=== PATIENT | female | born 1995 | race Caucasian/White ===

== ENCOUNTER 2017-07-06 20:51 | Emergency (ER) | payer BC ==
[2017-07-06 21:02] VITALS: BP 118/69
[2017-07-06] MEDS ORDERED: IBUPROFEN 600 MG TAB PO ONE (21:40)
--- NOTE | 2017-07-06 21:40 | EDPHY ---
General - History Smoking Status: Never smoked Time Seen by Provider: 07/06/17 21:35 Narrative: CHIEF COMPLAINT: Right wrist pain HISTORY OF PRESENT ILLNESS: Patient complains of right wrist and forearm pain. This started approximately 10 days ago. This was after heavy adding of CHI packing. The pain is located on the lateral aspect of the right forearm, mid to distally. It was minimal over the 1st few days, over the past 2 days it has become moderate to severe. No numbness or tingling. No weakness. No blunt trauma or injury. She has a secondary complaint of a set of abrasions to the left lateral ankle. She does not know when her last tetanus was and would like to be updated. No other associated complaints or modifying factors. DOMINANT EXTREMITY: Right-hand dominant ESTABLISHED ORTHOPEDIST: None yet. She has called and scheduled appointment on Monday with Dr. Joshua Woodson REVIEW OF SYSTEMS: Ten systems reviewed and are negative unless otherwise noted in the HPI PAST MEDICAL HISTORY: Uncomplicated PAST SURGICAL HISTORY: No surgical history SOCIAL HISTORY: [employer] student. Originally from [place] FAMILY HISTORY: Noncontributory EXAMINATION General Appearance: Alert, no distress Cardiovascular: Symmetric radial pulses 2+. Brisk cap refill on the fingers of the right hand Neurological: A&O, sensory symmetric, interossei strength symmetric. Beauty Therapist strength symmetric Skin: Warm and dry, no rash. No petechiae purpura. No puncture, laceration or ecchymosis. There is superficial abrasion to the left lateral ankle below the malleolus. No cellulitis, abscess or crepitus Extremities: Moderate tenderness of the right lateral forearm from mid to distal portion. No snuffbox tenderness. No pain of the phalanges or metacarpals. Pain is worse with ulnar deviation of the wrist. Equivocal Giselle test. No palpable masses the forearm. Range of motion of the elbow was unremarkable. Psychiatric: Mood and affect normal DIFFERENTIAL DIAGNOSES: Including but not limited to sprain, strain, tendinitis, tenosynovitis MDM: 9:40 p.m. Acute right wrist tendinitis versus declare veins tenosynovitis. There is no bony tenderness. No crepitus. She is fully neuro intact. I do not feel that she warrants an x-ray, nor does she want [address] will place her in a thumb spica splint to protect the wrist and provide some support for her. She is weight-bearing as tolerated. I have also ordered a Tdap booster for her abrasion as she does not know when her last tetanus was. We discussed ice, elevation and anti-inflammatories. Discharged home stable condition with orthopedic follow-up that she has secured on Monday. ED precautions discussed SUPERVISION: This patient was independently evaluated without direct involvement of or examination by the attending physician. ED Precautions: Worsening pain. Erythema, edema, cyanosis, pallor, paresthesia or anesthesia. (Yuri Priest) The patient was evaluated and managed by the physician library technical assistant. I have reviewed this chart and I agree with the findings and plan of care as documented , as indicated by my signature. I am the secondary supervising physician. ( Renata Villasenor) - Objective Vital Signs: Initial Vital Signs Temperature (C) 36.8 C 07/06/17 20:58 Heart Rate 64 07/06/17 20:58 Respiratory Rate 16 07/06/17 20:58 Blood Pressure 118/69 07/06/17 20:58 O2 Sat (%) 98 07/06/17 20:58 O2 Delivery Mode Room Air Allergies/Adverse Reactions: No Known Allergies Allergy (Unverified 07/06/17 20:57) Home Medications: Medication Instructions Recorded NK [No Known Home Meds] 07/06/17 Medications Given: Discontinued Medications Ibuprofen (Motrin) 600 mg PO EDNOW ONE Stop: 07/06/17 21:41 Last Admin: 07/06/17 21:45 Dose: 600 mg Departure - Departure Disposition: Home, Routine, Self-Care Clinical Impression: Right wrist tendinitis Condition: Good Instructions: De Quervain Disease (ED), Tendinitis (ED) Additional Instructions: 1. Ice and elevate often 2. Ibuprofen 600 mg every 6-8 hours as needed for pain 3. Keep the appointment that she made on Monday with Dr. Woodson Referrals: NONE *PRIMARY CARE P,. [Primary Care Provider] - As per Instructions Joshua Woodson MD [Medical Doctor] - As per Instructions
[2017-07-06] MEDS ORDERED: TDAP ADULT 0.5 ML INJ (BOOSTRIX) IM ONE (21:43)
== END 2017-07-06 21:55 | disposition home or self-care (01) ==
DX: M77.8 Other enthesopathies, not elsewhere classified (principal)

== ENCOUNTER 2018-01-15 13:25 | Emergency (ER) | payer BC ==
[2018-01-15] MEDS ORDERED: NS 1,000 ML IV ONE (14:33)
--- NOTE | 2018-01-15 14:33 | EDPHY ---
H & P Stated Complaint: 1 week upper abd pain and dizzyness sent to r/o ulcer Time Seen by Provider: 01/15/18 14:33 HPI/ROS: CHIEF COMPLAINT: Intermittent abdominal pain HISTORY OF PRESENT ILLNESS: The patient presents to the ED with a one-week history of intermittent abdominal pain. The patient has been taking NSAIDs at night. She did have some dark stools earlier in the week but had taken Pepto- Bismol. The patient continues to complain of some ongoing epigastric discomfort. She denies any lower abdominal pain. She denies any prior history of gastrointestinal illness or disease. The patient reports that her pain is mild in nature. It is worsened with palpation and eating. REVIEW OF SYSTEMS: A comprehensive 10 point review of systems is otherwise negative aside from elements mentioned in the history of present illness. Source: Patient Exam Limitations: No limitations - Personal History LMP (Females 10-55): IUD In Place Current Tetanus Diphtheria and Acellular Pertussis (TDAP): Yes - Medical/Surgical History Hx Asthma: No Hx Chronic Respiratory Disease: No Hx Diabetes: No Hx Cardiac Disease: No Hx Renal Disease: No Hx Cirrhosis: No Hx Alcoholism: No Hx HIV/AIDS: No Hx Splenectomy or Spleen Trauma: No Other PMH: denies - Social History Smoking Status: Never smoked - Physical Exam Exam: General Appearance: Alert, no distress Eyes: Pupils equal and round no pallor or injection ENT, Mouth: Mucous membranes moist Respiratory: There are no retractions, lungs are clear to auscultation Cardiovascular: Regular rate and rhythm Gastrointestinal: Minimal epigastric tenderness to palpation, no peritoneal signs, normal bowel sounds Neurological: 5/5 strength all 4 extremities Skin: Warm and dry, no rashes Musculoskeletal: Neck is supple nontender Extremities: symmetrical, full range of motion Psychiatric: Patient is oriented X 3, there is no agitation Constitutional: Initial Vital Signs Temperature (C) 36.9 C 01/15/18 13:39 Heart Rate 92 01/15/18 13:39 Respiratory Rate 16 01/15/18 13:39 Blood Pressure 112/81 H 01/15/18 13:39 O2 Sat (%) 97 01/15/18 13:39 O2 Delivery Mode Room Air Allergies/Adverse Reactions: No Known Allergies Allergy (Unverified 07/06/17 20:57) Home Medications: Medication Instructions Recorded Pantoprazole Sodium [Protonix 40mg 40 mg PO BID #60 tab 01/15/18 (*)] Medical Decision Making - Diagnostics EKG Interpretation: EKG: Complete interpretation has been separately recorded in the [facility] archive. Summary impression: Sinus rhythm, rate 71 ED Course/Re-evaluation: The patient presents the ED for evaluation of episodic epigastric pain over the past week. The patient has been using NSAIDs at night. She did have dark stool earlier in the week. The patient denies any hematemesis. She denies prior history of peptic ulcer disease. The patient was noted to be hemodynamically stable. Workup in the emergency department includes a normal CBC, serum chemistries, liver function test and lipase. The patient's test is negative. Patient has no evidence of any anemia. The patient certainly could be experiencing some NSAID induced gastritis. The patient will be started on a proton pump inhibitor. She is advised to return to the emergency department for bright red blood per rectum, increasing melena, lightheadedness or other concerns. The patient is advised to follow up with her primary care provider for a recheck within the week. Differential Diagnosis: Differential diagnosis considered includes peptic ulcer disease, gastritis, hepatitis, pancreatitis, ruptured ovarian cyst - Data Points Laboratory Results: Laboratory Results 01/15/18 14:45 01/15/18 14:45 01/15/18 01/15/18 01/15/18 14:45 14:45 14:45 WBC 9.10 10^3/uL 10^3/uL (3.80-9.50) RBC 4.84 10^6/uL 10^6/uL (4.18-5.33) Hgb 14.6 g/dL g/dL (12.6-16.3) Hct 43.3 % % (38.0-47.0) MCV 89.5 fL fL (81.5-99.8) MCH 30.2 pg pg (27.9-34.1) MCHC 33.7 g/dL g/dL (32.4-36.7) RDW 12.5 % % (11.5-15.2) Plt Count 285 10^3/uL 10^3/uL (150-400) MPV 10.6 fL fL (8.7-11.7) Neut % (Auto) 74.4 % H % (39.3-74.2) Lymph % (Auto) 19.9 % % (15.0-45.0) [place] % (Auto) 4.3 % L % (4.5-13.0) Eos % (Auto) 0.7 % % (0.6-7.6) Baso % (Auto) 0.5 % % (0.3-1.7) Nucleat RBC Rel Count 0.0 % % (0.0-0.2) Absolute Neuts (auto) 6.77 10^3/uL H 10^3/uL (1.70-6.50) Absolute Lymphs (auto) 1.81 10^3/uL 10^3/uL (1.00-3.00) Absolute Monos (auto) 0.39 10^3/uL 10^3/uL (0.30-0.80) Absolute Eos (auto) 0.06 10^3/uL 10^3/uL (0.03-0.40) Absolute Basos (auto) 0.05 10^3/uL 10^3/uL (0.02-0.10) Absolute Nucleated RBC 0.00 10^3/uL 10^3/uL (0-0.01) Immature Gran % 0.2 % % (0.0-1.1) Immature Gran # 0.02 10^3/uL 10^3/uL (0.00-0.10) Sodium 142 mEq/L mEq/L (135-145) Potassium 4.1 mEq/L mEq/L (3.5-5.2) Chloride 107 mEq/L mEq/L (97-110) Carbon Dioxide 25 mEq/l mEq/l (22-31) Anion Gap 10 mEq/L mEq/L (6-14) BUN 16 mg/dL mg/dL (7-23) Creatinine 1.1 mg/dL H mg/dL (0.6-1.0) Estimated GFR > 60 Glucose 96 mg/dL mg/dL (70-100) Calcium 9.9 mg/dL mg/dL (8.5-10.4) Total Bilirubin Conjugated Bilirubin Unconjugated Bilirubin AST ALT Alkaline Phosphatase Total Protein Albumin Lipase Beta HCG, Qual NEGATIVE 01/15/18 14:25 WBC RBC Hgb Hct MCV MCH MCHC RDW Plt Count MPV Neut % (Auto) Lymph % (Auto) [place] % (Auto) Eos % (Auto) Baso % (Auto) Nucleat RBC Rel Count Absolute Neuts (auto) Absolute Lymphs (auto) Absolute Monos (auto) Absolute Eos (auto) Absolute Basos (auto) Absolute Nucleated RBC Immature Gran % Immature Gran # Sodium Potassium Chloride Carbon Dioxide Anion Gap BUN Creatinine Estimated GFR Glucose Calcium Total Bilirubin 0.4 mg/dL mg/dL (0.1-1.4) Conjugated Bilirubin 0.4 mg/dL mg/dL (0.0-0.5) Unconjugated Bilirubin 0.0 mg/dL mg/dL (0.0-1.1) AST 30 IU/L IU/L (14-46) ALT 17 IU/L IU/L (9-52) Alkaline Phosphatase 75 IU/L IU/L (38-126) Total Protein 7.1 g/dL g/dL (6.3-8.2) Albumin 4.5 g/dL g/dL (3.5-5.0) Lipase 141 IU/L IU/L (23-300) Beta HCG, Qual Medications Given: Discontinued Medications Sodium Chloride (Ns) 1,000 mls @ 0 mls/hr IV EDNOW ONE; Wide Open PRN Reason: Protocol Stop: 01/15/18 14:34 Last Admin: 01/15/18 14:53 Dose: 1,000 mls Departure - Departure Disposition: Home, Routine, Self-Care Clinical Impression: Abdominal pain Qualifiers: Abdominal location: epigastric Qualified Code(s): R10.13 - Epigastric pain Condition: Good Instructions: Acute Abdominal Pain (ED) Additional Instructions: 1. The blood testing done in the emergency department today demonstrates no evidence of anemia or active bleeding. 2. Return to the emergency department for increasing pain, black or bloody stools, fever or other concerns. 3. Please begin Protonix as prescribed. 4. Follow up with your primary care provider within the week. 5. I do recommend abstaining from ibuprofen, Motrin and Aleve as this may be contributing to your intestinal discomfort Referrals: Emily Paris NP [Primary Care Provider] - As per Instructions
[2018-01-15 14:57] LABS: PLATELET COUNT 285 10^3/uL (150-400)
--- NOTE | 2018-01-15 15:04 | CPEKG ---
Test Reason : OPEN Blood Pressure : / mmHG Vent. Rate : 071 BPM Atrial Rate : 072 BPM P-R Int : 151 ms QRS Dur : 087 ms QT Int : 396 ms P-R-T Axes : 056 067 016 degrees QTc Int : 431 ms Sinus rhythm Confirmed by Jason Morse ([id number]) on 01/15/2018 3:04:09 PM Referred By: Confirmed By:Jason Morse
[2018-01-15 16:14] VITALS: BP 104/80
== END 2018-01-15 16:17 | disposition home or self-care (01) ==
DX: R10.13 Epigastric pain (principal); Z97.5 Presence of (intrauterine) contraceptive device

== ENCOUNTER 2018-03-03 17:38 | Emergency (ER) | payer BC ==
--- NOTE | 2018-03-03 18:22 | EDPHY ---
HPI/HX/ROS/PE/MDM Narrative: CHIEF COMPLAINT: Abdominal pain HISTORY OF PRESENT ILLNESS: The patient is a 23 y/o female with a GERD and gastritis complaining of lower abdominal pain onset 1 hour ago. Patient has been seen previously with symptoms which were felt to be related to GERD. She did not have endoscopy. She improved on a course of PPI eyes. She has been off of all PPI's since early February. However, on , 2 days ago, she developed heartburn which was relieved with Tums.. Today she developed suprapubic and lower abdominal discomfort which concerned her. No urinary complaints, no fever, no vomiting, no shortness of breath, no diarrhea, no headache, no vaginal bleeding. Patient does report that her last period was quite light. She has a copper IUD in place. REVIEW OF SYSTEMS: Aside from elements discussed in the HPI, a comprehensive 10-point review of systems was reviewed and is negative. PAST MEDICAL HISTORY: GERD, depression, anxiety SOCIAL HISTORY: Lives in [place], single, student at [employer] VITAL SIGNS: Reviewed by me GENERAL: Well-developed, well-nourished, complaining of lower abdominal discomfort and right sided discomfort HEENT: Atraumatic. Eyes: No icterus, no injection. Mouth: moist mucous membranes. No erythema or lesions. Neck: supple with no adenopathy. LUNGS: Clear to auscultation bilaterally, no wheezes, rhonchi or rales. CARDIAC: Regular rate and rhythm, no rubs, murmurs or gallops. ABDOMEN: Suprapubic, right adnexal, right lower quadrant, and right mid quadrant tenderness to palpation. No guarding or rebound. Abdomen is soft. No distension. BACK: No CVA tenderness. EXTREMITIES: No trauma. No edema. Range of motion is normal throughout. NEURO: Alert and oriented, grossly nonfocal. SKIN: Warm and dry, no rash. PSYCHIATRIC: Normal mentation, no agitation. Portions of this note were transcribed by a medical records coder. I personally performed a history, physical exam, medical decision making, and confirmed accuracy of information the transcribed note. ED Course: The patient is a 23 y/o female with a history of presumed GERD presenting with right adnexal, right lower quadrant, right upper quadrant abdominal pain onset 1 hour ago. On exam she has suprapubic, adnexal, and RLQ tenderness to palpation. Labs and abdominal US ordered; GI cocktail and 1L IV NS administered. Labs are none unremarkable. Patient is not . 1999: Ultrasounds reports me as showing follicular cysts, with a right ovarian cyst of 2 cm. Right upper quadrant ultrasound was negative. Appendix was not visualized. 2024: Reassessed patient and discussed imaging findings. Patient has many questions regarding the implication of a low cortisol level which she has recently been diagnosed with, and whether this has anything to do with her abdominal pain. I think her pain is most likely related to follicular cyst as she reports an abnormally light . Recently. She does have some mild right lower quadrant right mid quadrant right upper quadrant tenderness. She has had no fever. No vomiting. No significant tenderness. I do not believe that patient needs further evaluation for appendicitis at this time. 15mg IV Toradol administered prior to discharge. I have advised her to take Omeprazole and Bentyl for her symptoms. I have also referred her to a sales account manager. Return precautions provided; patient is comfortable with this plan. MDM: The differential diagnosis for the patient's abdominal pain was considered including but not limited to ovarian cyst, appendicitis, gastritis, irritable bowel, pelvic inflammatory disease, ovarian torsion, urinary tract infection, related complications, and appendicitis. - Data Points Imaging Results: Imaging Impressions Abdomen Ultrasound 03/03/18 18:56 Impression: Normal right upper quadrant ultrasound. Pelvic/Renal Ultrasound 03/03/18 18:57 Impression: 1. IUD in good position. 2. Follicular cyst on the right. 3. No significant abnormality in the pelvis. Findings discussed with Emma Padron MD at 19:58 hour, 03/03/2018. Imaging: Discussed imaging studies w/ call taker Radiologist Laboratory Results: Laboratory Results 03/03/18 18:15 03/03/18 18:15 03/03/18 03/03/18 03/03/18 19:10 18:15 18:15 WBC RBC Hgb Hct MCV MCH MCHC RDW Plt Count MPV Neut % (Auto) Lymph % (Auto) [place] % (Auto) Eos % (Auto) Baso % (Auto) Nucleat RBC Rel Count Absolute Neuts (auto) Absolute Lymphs (auto) Absolute Monos (auto) Absolute Eos (auto) Absolute Basos (auto) Absolute Nucleated RBC Immature Gran % Immature Gran # Sodium Potassium Chloride Carbon Dioxide Anion Gap BUN Creatinine Estimated GFR Glucose Calcium Total Bilirubin AST ALT Alkaline Phosphatase Total Protein Albumin Lipase 192 IU/L IU/L (23-300) Beta HCG, Qual NEGATIVE Urine Color YELLOW Urine Appearance CLEAR Urine pH 6.0 (5.0-7.5) Ur Specific [place] 1.016 (1.002-1.030) Urine Protein NEGATIVE (NEGATIVE) Urine Ketones 2+ H (NEGATIVE) Urine Blood NEGATIVE (NEGATIVE) Urine Nitrate NEGATIVE (NEGATIVE) Urine Bilirubin NEGATIVE (NEGATIVE) Urine Urobilinogen NEGATIVE EU EU (0.2-1.0) Ur Leukocyte Esterase NEGATIVE (NEGATIVE) Urine RBC 1-3 /hpf /hpf (0-3) Urine WBC 1-3 /hpf /hpf (0-3) Ur Epithelial Cells TRACE /lpf /lpf (NONE-1+) Urine Bacteria TRACE /hpf H /hpf (NONE SEEN) Urine Mucus TRACE /lpf /lpf (NONE-1+) Urine Glucose NEGATIVE (NEGATIVE) 03/03/18 03/03/18 18:15 18:15 WBC 12.35 10^3/uL H 10^3/uL (3.80-9.50) RBC 4.76 10^6/uL 10^6/uL (4.18-5.33) Hgb 14.5 g/dL g/dL (12.6-16.3) Hct 43.1 % % (38.0-47.0) MCV 90.5 fL fL (81.5-99.8) MCH 30.5 pg pg (27.9-34.1) MCHC 33.6 g/dL g/dL (32.4-36.7) RDW 12.1 % % (11.5-15.2) Plt Count 258 10^3/uL 10^3/uL (150-400) MPV 10.7 fL fL (8.7-11.7) Neut % (Auto) 68.3 % % (39.3-74.2) Lymph % (Auto) 23.8 % % (15.0-45.0) [place] % (Auto) 5.0 % % (4.5-13.0) Eos % (Auto) 2.2 % % (0.6-7.6) Baso % (Auto) 0.4 % % (0.3-1.7) Nucleat RBC Rel Count 0.0 % % (0.0-0.2) Absolute Neuts (auto) 8.43 10^3/uL H 10^3/uL (1.70-6.50) Absolute Lymphs (auto) 2.94 10^3/uL 10^3/uL (1.00-3.00) Absolute Monos (auto) 0.62 10^3/uL 10^3/uL (0.30-0.80) Absolute Eos (auto) 0.27 10^3/uL 10^3/uL (0.03-0.40) Absolute Basos (auto) 0.05 10^3/uL 10^3/uL (0.02-0.10) Absolute Nucleated RBC 0.00 10^3/uL 10^3/uL (0-0.01) Immature Gran % 0.3 % % (0.0-1.1) Immature Gran # 0.04 10^3/uL 10^3/uL (0.00-0.10) Sodium 137 mEq/L mEq/L (135-145) Potassium 4.1 mEq/L mEq/L (3.5-5.2) Chloride 106 mEq/L mEq/L (97-110) Carbon Dioxide 21 mEq/l L mEq/l (22-31) Anion Gap 10 mEq/L mEq/L (6-14) BUN 20 mg/dL mg/dL (7-23) Creatinine 0.8 mg/dL mg/dL (0.6-1.0) Estimated GFR > 60 Glucose 86 mg/dL mg/dL (70-100) Calcium 9.3 mg/dL mg/dL (8.5-10.4) Total Bilirubin 0.5 mg/dL mg/dL (0.1-1.4) AST 18 IU/L IU/L (14-46) ALT 20 IU/L IU/L (9-52) Alkaline Phosphatase 69 IU/L IU/L (38-126) Total Protein 7.1 g/dL g/dL (6.3-8.2) Albumin 4.4 g/dL g/dL (3.5-5.0) Lipase Beta HCG, Qual Urine Color Urine Appearance Urine pH Ur Specific [place] Urine Protein Urine Ketones Urine Blood Urine Nitrate Urine Bilirubin Urine Urobilinogen Ur Leukocyte Esterase Urine RBC Urine WBC Ur Epithelial Cells Urine Bacteria Urine Mucus Urine Glucose Medications Given: Discontinued Medications Al Hydroxide/Mg Hydroxide (Maalox Susp) 30 ml PO ONCE ONE Stop: 03/03/18 18:57 Last Admin: 03/03/18 19:34 Dose: 30 ml Hyoscyamine Sulfate (Levsin, Hyomax-Sl) 0.25 mg PO ONCE ONE Stop: 03/03/18 18:57 Last Admin: 03/03/18 19:35 Dose: 0.25 mg Sodium Chloride (Ns) 1,000 mls @ 0 mls/hr IV ONCE ONE; Wide Open PRN Reason: Protocol Stop: 03/03/18 19:23 Last Admin: 03/03/18 19:34 Dose: 1,000 mls Ketorolac Tromethamine (Toradol) 15 mg IVP EDNOW ONE Stop: 03/03/18 20:49 Last Admin: 03/03/18 20:55 Dose: 15 mg Lidocaine (Lidocaine 2% Viscous) 15 ml PO ONCE ONE Stop: 03/03/18 18:57 Last Admin: 03/03/18 19:34 Dose: 15 ml Oxycodone/Acetaminophen (Percocet 5/325mg Prepack#4) 1 btl TAKEHOME EDNOW ONE Stop: 03/03/18 21:00 Last Admin: 03/03/18 21:06 Dose: 1 btl General Time Seen by Provider: 03/03/18 18:16 Initial Vital Signs: Initial Vital Signs Temperature (C) 36.6 C 03/03/18 17:51 Heart Rate 88 03/03/18 17:51 Respiratory Rate 18 03/03/18 17:51 Blood Pressure 107/76 03/03/18 17:51 O2 Sat (%) 98 03/03/18 17:51 O2 Delivery Mode Room Air Allergies/Adverse Reactions: No Known Allergies Allergy (Verified 03/03/18 17:51) Home Medications: Medication Instructions Recorded Dicyclomine [Bentyl 20 MG (*)] 20 mg PO QID #30 tab 03/03/18 Seroquel 03/03/18 Departure - Departure Disposition: Home, Routine, Self-Care Clinical Impression: Abdominal pain Qualifiers: Abdominal location: generalized Qualified Code(s): R10.84 - Generalized abdominal pain Ovarian cyst Qualifiers: Laterality: unspecified laterality Qualified Code(s): N83.209 - Unspecified ovarian cyst, unspecified side Instructions: Oxycodone/Acetaminophen (By mouth), Ovarian Cyst (ED), Abdominal Pain (ED) Additional Instructions: Take Omeprazole and Bentyl as prescribed. Omeprazole as available [id number]. Bentyl 20 mg up to 4 times a day for crampy abdominal discomfort. You may take Tylenol as needed for lower abdominal discomfort related to an ovarian cyst. You also been given a prepack of hydrocodone tablets. You may use this as needed for severe pain. However, please note that it may cause constipation. Follow up with a sales account manager; you have been referred to Dr. Gaming. Return to the Emergency Department for fever, chest pain, shortness of breath, increasing pain or other worsening of condition. Referrals: CORNELIUS CALVILLO [Other] - As per Instructions Chidi Gaming MD [Medical Doctor] - As per Instructions Prescriptions: Dicyclomine [Bentyl 20 MG (*)] 20 mg PO QID #30 tab Report Scribed for: Emma Padron Report Scribed by: Ruth Su Date of Report: 03/03/18 Time of Report: 18:22
[2018-03-03 18:36] LABS: PLATELET COUNT 258 10^3/uL (150-400)
[2018-03-03] MEDS ORDERED: HYOSCYAMINE SULFATE 0.125 MG TAB PO ONE (18:56)
[2018-03-03] MEDS ORDERED: LIDOCAINE 2% VISCOUS 15 ML UDCUP PO ONE (18:56)
[2018-03-03] MEDS ORDERED: MAG HYDROX/AL HYDROX/SIMETH 30 ML UDCUP PO ONE (18:56)
[2018-03-03] MEDS ORDERED: NS 1,000 ML IV ONE (19:22)
[2018-03-03] MEDS ORDERED: KETOROLAC 15 MG/1 ML SDV IVP ONE (20:48)
[2018-03-03] MEDS ORDERED: OXYCODONE/APAP 5/325MG PREPACK#4 BTL TAKEHOME ONE (20:59)
[2018-03-03 21:11] VITALS: BP 99/61
== END 2018-03-03 21:20 | disposition home or self-care (01) ==
DX: R10.31 Right lower quadrant pain (principal); N83.201 Unspecified ovarian cyst, right side; E86.9 Volume depletion, unspecified; Z97.5 Presence of (intrauterine) contraceptive device
CPT/HCPCS: 96374; J1885